=== PATIENT | female | born 1975 | race Caucasian/White ===

== ENCOUNTER 2024-07-16 09:11 | Day surgery (SDC) | payer OTHER, SELFPAY ==
[2024-07-16] VITALS (7 sets, daily range): BP systolic 101–145; BP diastolic 55–127; PULSE 58–92; RESP 16–18; TEMP 36–36.4; O2SAT 95–99; BMI 51.5
[2024-07-16 09:38] LABS: Internal QC Validated? YES +Cl - CLEAR BKGD; Pregnancy, Urine Negative Negative
[2024-07-16] MEDS: Levonorgestrel IUD (Liletta) 1 EACH INTRA-UTER (11:08)
[2024-07-16] MEDS: Lidocaine 1% /Epi 1:100 (20ml) 20 ML Vial (11:12)
== END 2024-07-16 12:27 | disposition home or self-care (01) ==
LOC: SDC 09:12 → AC 09:15
PROVIDERS: PCP Family Medicine; Referring Provider Obstetrics & Gynecology; Visit Provider Obstetrics & Gynecology
PROC: 0UB98ZZ Excision of Uterus, Via Natural or Artificial Opening Endoscopic (ICD-10-PCS; CPT 58558; principal; 2024-07-16 10:45)
DX: N93.8 Other specified abnormal uterine and vaginal bleeding (principal); N85.01 Benign endometrial hyperplasia; Z30.430 Encounter for insertion of intrauterine contraceptive device; Z87.891 Personal history of nicotine dependence
CPT/HCPCS: 58558; 58300; 00952; 81025; 86850; 86900; 86901; 88305; A4216; J2405